=== PATIENT | male | born 1980 | race Two or more races ===

== ENCOUNTER 2019-08-14 17:11 | Emergency (ER) | payer MEDICAID ==
[~2019-08-14] VITALS: Ht 177.8 cm; Wt 81.6 kg
--- NOTE | 2019-08-14 17:11 | NUR ---
patient brought in by [employer] about 5 officers. patient severely agitated surgical mask on due spitting and bitting officers. Patient examine by Md. but at this time unable to provide any information. Pt. with no tshirt wearing pants only. Situated in bed, placed on hard restrains as ordered by Md. Medicated as order as well, patient remains uncooperative and extremely aggressive.
[2019-08-14] MEDS ORDERED: LORAZEPAM 2 MG/1 ML VIAL IM STA (17:12)
--- NOTE | 2019-08-14 17:12 | NUR ---
Patient with 1:1 sitter at bedside.
[2019-08-14] MEDS ORDERED: HALOPERIDOL LACTATE 5 MG/1 ML VIAL IM ONE (17:15)
[2019-08-14] MEDS ORDERED: diphenhydrAMINE 50 MG/1 ML VIAL IM ONE (17:15)
[2019-08-14] MEDS ORDERED: HALOPERIDOL LACTATE 5 MG/1 ML VIAL ONE (17:19)
[2019-08-14] MEDS ORDERED: diphenhydrAMINE 50 MG/1 ML VIAL ONE (17:19)
[2019-08-14] MEDS ORDERED: LORAZEPAM 2 MG/1 ML VIAL ONE (17:20)
[2019-08-14 17:45] LABS: BASOPHILS % (AUTO) 0.6 % (0.0-2.0); EOSINOPHILS # (AUTO) 0.1 K/uL (0.0-0.7); EOSINOPHILS % (AUTO) 2.5 % (0.0-7.0); HEMATOCRIT 43.1 % (36.7-47.1); HEMOGLOBIN 14.7 g/dL (12.5-16.3); LYMPHOCYTES # (AUTO) 1.6 K/uL (20.0-40.0); LYMPHOCYTES % (AUTO) 28.8 % (20.5-51.5); MEAN CORPUSCULAR HEMOGLOBIN 28.6 uug (23.8-33.4); MEAN CORPUSCULAR HGB CONC 34 g/dL (32.5-36.3); MEAN CORPUSCULAR VOLUME 83.8 fL (73.0-96.2); MONOCYTES # (AUTO) 0.4 K/uL (2.0-10.0); MONOCYTES % (AUTO) 7.9 % (0.0-11.0); NEUTROPHILS # (AUTO) 3.3 K/uL (1.8-8.9); NEUTROPHILS % (AUTO) 60.2 % (38.5-71.5); PLATELET COUNT (AUTO) 224 K/uL (152-348); RED BLOOD CELL COUNT(AUTO) 5.14 MIL/uL (4.06-5.63); WHITE BLOOD COUNT (AUTO) 5.5 K/uL (3.6-10.2)
--- NOTE | 2019-08-14 17:45 | NUR ---
Urine specimen collected and sent to lab. at this time patient able to follow command and educated on the need to obtain urine and assisted with specimen cup.
--- NOTE | 2019-08-14 17:57 | NUR ---
at bedside to reevaluate pt.
[2019-08-14 18:00] LABS: ETHANOL < 3 MG/DL (0-0)
--- NOTE | 2019-08-14 18:00 | NUR ---
HR 64 120/68. rr 18.
[2019-08-14 18:01] LABS: *BILIRUBIN,URIN NEGATIVE (NEGATIVE); *BLOOD, URINE NEGATIVE (NEGATIVE); *CLARITY,URINE CLEAR (CLEAR); *COLOR,URINE YELLOW (YELLOW); *KETONES,URINE NEGATIVE (NEGATIVE); LEUKOCYTE ESTERASE ,URINE NEGATIVE (NEGATIVE); NITRITE, URINE NEGATIVE (NEGATIVE); UGLUCOSE NEGATIVE (NEGATIVE)
[2019-08-14 18:05] LABS: ALANINE AMINOTRANSFERASE 15 U/L (16-63); ALKALINE PHOSPHATASE 78 U/L (50-136); ASPARTATE AMINOTRANSFERASE 15 U/L (15-37); BILIRUBIN,DIRECT 0.1 mg/dL (0.0-0.2); BILIRUBIN,TOTAL 0.5 mg/dL (0.2-1.0); CARBON DIOXIDE 24 mmol/L (21-32); CHLORIDE 104 mmol/L (98-107); CREATININE 1.1 mg/dL (0.6-1.3); GLUCOSE 85 mg/dL (74-106); POTASSIUM 3.5 mmol/L (3.5-5.1); TOTAL PROTEIN, SERUM 6.6 g/dL (6.4-8.2); UREA NITROGEN, BLOOD 17 mg/dL (7-18)
--- NOTE | 2019-08-14 18:05 | NUR ---
Patient easily arousable to verbal command.
[2019-08-14 18:08] LABS: ACETAMINOPHEN < 2.0 ug/mL (10-30)
[2019-08-14 18:13] LABS: *AMPHETAMINE, URINE NEGATIVE (NEGATIVE); *BARBITURATE, URINE NEGATIVE (NEGATIVE); *CANNABINOID, URINE NEGATIVE (NEGATIVE); *COCCAINE, URINE NEGATIVE (NEGATIVE); *OPIATE, URINE NEGATIVE (NEGATIVE); *PHENCYCLIDINE SCREEN,URINE NEGATIVE (NEGATIVE)
--- NOTE | 2019-08-14 18:37 | NUR ---
[facility] Crisis team combination machine tender called and informed of 's request to come and evaluate patient.
--- NOTE | 2019-08-14 19:09 | NUR ---
Report givent to Heather ESTES
--- NOTE | 2019-08-14 19:17 | NUR ---
Report received. Patient with 1:1 sitter and in 4 points restraints. Awakened but drowsy with very limited verbal responses. Wants to urinate. Urinal offerred; voided clear yellow urine.
--- NOTE | 2019-08-14 20:25 | NUR ---
Janki from Crisis team here and evaluated patient. Discussed plan of care. As per her evaluation patient is not suicidal and can be discharged. Janki provided a List of Shelters to patient.
--- NOTE | 2019-08-14 20:45 | NUR ---
Restraints released; security guards at bedside. Patient cooperative. Booster Operator and staff development manager informed of patient's discharge. Homeless waiver form signed by patient.
--- NOTE | 2019-08-14 21:00 | NUR ---
[place], juice, water, weather appropriate clothing and TAP card provided.
--- NOTE | 2019-08-14 21:10 | NUR ---
Patient given written and verbal discharge instructions. Patient verbalizes understanding of instructions. Patient is ambulatory with steady gait. Refuses offer of snf placement. Patient given list of available shelters in surrounding area.
[2019-08-14 21:14] VITALS: BP 116/80
--- NOTE | 2019-08-15 15:04 | NUR ---
Injection given to right deltoid (unable to do it from [facility]
== END 2019-08-14 21:10 | disposition home or self-care (01) ==
LOC: ER 17:13
DX: F23 Brief psychotic disorder (principal); R45.1 Restlessness and agitation; Z59.0 Homelessness
CPT/HCPCS: 36415; 80048; 80076; 80307 ×2; 80329; 81001; 85025; 96372; 99285; G0480; J1200; J1630; J2060; A4663